=== PATIENT | female | born 1995 | race Caucasian/White ===

== ENCOUNTER 2017-05-11 13:02 | Emergency (ER) | payer MEDICAID ==
--- NOTE | 2017-05-11 13:15 | Emergency Department Record ---
History of Present Illness - General Chief complaint: Extremity Problem Stated complaint: LEFT SHOULDER PAIN Time Seen by Provider: 05/11/17 13:10 Source: Patient Mode of Arrival: Ambulatory Limitations: No limitations - History of Present Illness Initial comments: 21 yo presents with left scapular area pain with movement. This started gradually over the last 2 weeks. No rash. No swelling. She denies any injury. She only has pain with certain movements. No his or shoulder shoulder. The pain occurs with raising her arm up. MD Complaint: Other (shoulder/scapular pain) -: Week(s) (2) Location: Left -: No Arthralgia, Yes Myalgia Radiation: Proximal Quality: Aching Consistency: Constant Improves with: Immobilization Worsens with: Palpation, Weight bearing Associated Symptoms: Denies other symptoms - Related Data Previous Rx's Medication Instructions Recorded Cyclobenzaprine HCl [Flexeril] 10 mg PO TID #20 tablet 05/11/17 Naproxen [Naprosyn] 500 mg PO BID #20 tablet 05/11/17 Allergies Allergy/AdvReac Type Severity Reaction Status Date / Time No Known Drug Allergies Allergy Verified 02/23/16 17:20 Review of Systems Constitutional: Denies: Chills, Fever, Malaise, Weakness Eyes: Denies: Eye discharge ENT: Denies: Congestion Respiratory: Denies: Cough Cardiovascular: Denies: Chest pain, Syncope Endocrine: Denies: Fatigue Gastrointestinal: Denies: Abdominal pain, Diarrhea, Nausea, Vomiting Genitourinary: Denies: Dysuria, Urgency Musculoskeletal: Reports: Myalgia. Denies: Arthralgia, Back pain Skin: Denies: Bruising, Change in color Neurological: Denies: Numbness, Weakness Psychiatric: Denies: Anxiety Hematological/Lymphatic: Denies: Easy bleeding, Easy bruising, Swollen glands Past Medical History - SOCIAL HISTORY Smoking Status: Never smoker Drug Use: None - RESPIRATORY Hx Respiratory Disorders: No - CARDIOVASCULAR Hx Cardio Disorders: No - NEURO Hx Neuro Disorders: No - GI Hx GI Disorders: No - Hx Genitourinary Disorders: No - ENDOCRINE Hx Endocrine Disorders: No - MUSCULOSKELETAL Hx Musculoskeletal Disorders: No - PSYCH Hx Psych Problems: No - HEMATOLOGY/ONCOLOGY Hx Hematology/Oncology Disorders: No Family Medical History Hx Cancer: Grandparents Hx Diabetes: Father, Brother/Sister Hx Heart Disease: Grandparents Hx Liver Disease: Mother Physical Exam - General General Appearance: Alert, Oriented x3, Cooperative, No acute distress - Head Head exam: Atraumatic, Normal inspection - Eye Eye exam: Normal appearance. negative: Conjunctival injection - ENT ENT exam: Normal exam Ear exam: Normal external inspection Nasal Exam: Normal inspection Mouth exam: Normal external inspection - Neck Neck exam: Normal inspection - Respiratory Respiratory exam: Normal lung sounds bilaterally. negative: Respiratory distress - Cardiovascular Cardiovascular Exam: Regular rate, Normal rhythm, Normal heart sounds Peripheral Pulses: 2+: Radial (L) - Rectal Rectal exam: Deferred - exam: Deferred - Extremities Extremities exam: Normal inspection, Full ROM, Normal capillary refill, Tenderness. negative: Joint swelling Image of Full Body: 1 - reproducible tenderness in the muscles, no pain with shoulder internal or external rotation but pain with reaching pain is in the scapular muscle area - Back Back exam: Reports: Normal inspection, Muscle spasm, Tenderness - Neurological Neurological exam: Alert, Normal gait, Oriented X3 - Psychiatric Psychiatric exam: Normal affect, Normal mood - Skin Skin exam: Dry, Intact, Normal color, Warm Disposition Disposition: Discharge Clinical Impression: Muscle strain of scapular region Qualifiers: Encounter type: initial encounter Laterality: left Qualified Code(s): S46.912A - Strain of unspecified muscle, fascia and tendon at shoulder and upper arm level, left arm, initial encounter Disposition: Home, Self-Care Condition: (1) Good Instructions: Muscle Strain (ED) Additional Instructions: Massage the area and use heat to loosen up the muscles Return if worse, fever, cough or any new symptoms develop Avoid driving with the mediations as they can cause drowsiness Prescriptions: Cyclobenzaprine HCl [Flexeril] 10 mg PO TID #20 tablet Naproxen [Naprosyn] 500 mg PO BID #20 tablet Forms: Patient Portal Access Time of Disposition: 13:18 Quality - Quality Measures Quality Measures: N/A - Blood Pressure Screening Does Patient Have Any of the Following: No Systolic Measurement: ~ Screening for High Blood Pressure: < Normal BP, F/U Not Required > [G8783]
== END 2017-05-11 13:27 | disposition home or self-care (01) ==
LOC: ER 13:02
DX: S46.912A Strain of unspecified muscle, fascia and tendon at shoulder and upper arm level, left arm, initial encounter (principal); X58.XXXA Exposure to other specified factors, initial encounter
CPT/HCPCS: 99282

== ENCOUNTER 2017-09-16 04:43 | Emergency (ER) | payer SELFPAY ==
[2017-09-16] MEDS ORDERED: ONDANSETRON HCL IV 4 MG/2 ML VIAL IVP ONE (04:56)
[2017-09-16] MEDS ORDERED: RANITIDINE HCL 50 MG in 0.9 % SODIUM CHLORIDE 100ML 100 ML IVPB ONE (04:56)
[2017-09-16] MEDS ORDERED: 0.9 % SODIUM CHLORIDE 1,000 ML BAG IV ONE (04:56)
--- NOTE | 2017-09-16 04:57 | Emergency Department Record ---
History of Present Illness - General Chief complaint: Vomiting blood Stated complaint: VOMITED BLOOD Time Seen by Provider: 09/16/17 04:48 Source: Patient Mode of Arrival: Ambulatory Limitations: No limitations - History of Present Illness Initial comments: 22 yo female presents at 11 weeks . She reports she has had morning nausea and vomiting almost daily since finding out she was . This morning she noted some blood mixed in the emesis. She denies recent abdominal pain, dark stools, vaginal bleeding, epigastric pain. She has seen her doctor for this . She had an US at 9 weeks that confirmed single live IUP. No history of ulcers in the past. Radiation: None Consistency: Intermittent Improves with: None Worsens with: Eating Context: Other (11 weeks ) Associated Symptoms: Loss of appetite, Other - Related Data Home Medications Medication Instructions Recorded Confirmed Last Taken Prenat Vit 17/Iron/Folic/Om3,6 1 tab PO DAILY 09/16/17 09/16/17 Unknown [Elite-Ob 400 Capsule] Previous Rx's Medication Instructions Recorded Ondansetron [Zofran Odt] 4 mg PO Q8H #10 tab.rapdis 09/16/17 Ranitidine HCl [Zantac] 150 mg PO DAILY #30 tab 09/16/17 Allergies Allergy/AdvReac Type Severity Reaction Status Date / Time No Known Drug Allergies Allergy Verified 09/16/17 04:47 Review of Systems Constitutional: Denies: Chills, Fever, Malaise, Weakness Eyes: Denies: Eye discharge, Eye pain, Photophobia, Vision change ENT: Denies: Congestion, Throat pain Respiratory: Denies: Cough, Dyspnea, Hemoptysis, Stridor, Wheezes Cardiovascular: Denies: Chest pain, Palpitations, Syncope Endocrine: Denies: Fatigue Gastrointestinal: Reports: Hematemesis, Nausea, Vomiting. Denies: Abdominal pain, Diarrhea, Hematochezia, Melena Genitourinary: Reports: Abnormal menses (). Denies: Dysuria, Urgency Musculoskeletal: Denies: Arthralgia, Back pain Skin: Denies: Bruising, Change in color, Rash Neurological: Denies: Headache, Numbness, Weakness Psychiatric: Denies: Anxiety Hematological/Lymphatic: Denies: Blood Clots, Easy bleeding, Easy bruising, Swollen glands Past Medical History - SOCIAL HISTORY Smoking Status: Light tobacco smoker (<10/day) - RESPIRATORY Hx Respiratory Disorders: No - CARDIOVASCULAR Hx Cardio Disorders: No - NEURO Hx Neuro Disorders: No - GI Hx GI Disorders: No - Hx Genitourinary Disorders: No - ENDOCRINE Hx Endocrine Disorders: No - MUSCULOSKELETAL Hx Musculoskeletal Disorders: No - PSYCH Hx Psych Problems: No - HEMATOLOGY/ONCOLOGY Hx Hematology/Oncology Disorders: No Family Medical History Hx Cancer: Grandparents Hx Diabetes: Father, Brother/Sister Hx Heart Disease: Grandparents Hx Liver Disease: Mother Physical Exam - General General Appearance: Alert, Oriented x3, Cooperative, No acute distress Limitations: No limitations - Head Head exam: Atraumatic, Normal inspection - Eye Eye exam: Normal appearance, PERRL. negative: Conjunctival injection, Scleral icterus - ENT ENT exam: Normal exam, Mucous membranes moist Ear exam: Normal external inspection Nasal Exam: Normal inspection Mouth exam: Normal external inspection - Neck Neck exam: Normal inspection, Full ROM. negative: Tenderness - Respiratory Respiratory exam: Normal lung sounds bilaterally. negative: Respiratory distress - Cardiovascular Cardiovascular Exam: Regular rate, Normal rhythm, Normal heart sounds - GI/Abdominal GI/Abdominal exam: Soft, Other (Very soft, non tender abdomen to palpation). negative: Distended, Guarding, Rebound, Rigid, Tenderness - Rectal Rectal exam: Deferred - exam: Deferred - Extremities Extremities exam: Normal inspection - Back Back exam: Denies: CVA tenderness (R), CVA tenderness (L) - Neurological Neurological exam: Alert, Normal gait, Oriented X3 - Psychiatric Psychiatric exam: Normal affect, Normal mood - Skin Skin exam: Dry, Intact, Normal color, Warm. negative: Cyanosis, Diaphoretic, Mottled Course - Reevaluation(s) Reevaluation #1: 09/16/17 05:41 The labs were reviewed There are no acute changes on the CBC or BMP The patient's nausea is well controlled. No additional vomiting. She will be DC on Zantac. She is to call her doctor Sunday to discuss follow up and duration of use of the Zantac 09/16/17 05:46 Medical Decision Making - Lab Data Result diagrams: 09/16/17 05:00 09/16/17 05:00 Disposition Disposition: Discharge Clinical Impression: Hyperemesis gravidarum Gastritis Qualifiers: Gastritis type: unspecified gastritis Chronicity: acute Gastritis bleeding: without bleeding Qualified Code(s): K29.00 - Acute gastritis without bleeding Disposition: Home, Self-Care Condition: (1) Good Instructions: Hyperemesis Gravidarum (ED), Gastritis (ED) Additional Instructions: Return or be seen if you have continued vomiting with blood Be seen immediately if you have pain, fever, uncontrolled vomiting or blood Call your doctor on Sunday for close follow up to discuss this ER visit and discuss the duration of use of the medications You may try Unisom that can be bought over the counter for nausea. If this is not working you may take the Zofran. Discuss this with your doctor as well. Prescriptions: Ondansetron [Zofran Odt] 4 mg PO Q8H #10 tab.rapdis Ranitidine HCl [Zantac] 150 mg PO DAILY #30 tab Forms: Patient Portal Access Time of Disposition: 05:48 Quality - Quality Measures Quality Measures: N/A - Blood Pressure Screening Does Patient Have Any of the Following: No Blood Pressure Classification: Normal BP Reading Systolic Measurement: 117 Diastolic Measurement: 76 Screening for High Blood Pressure: < Normal BP, F/U Not Required > [G8783]
[2017-09-16 05:10] LABS: BASO % 0.2 % (0-6); EOS % 1.7 % (0-6); GRAN % 59.2 % (47-80); HEMATOCRIT 38.9 % (35.0-47.0); HEMOGLOBIN 13.3 gm/dl (11.6-16.0); LYMPH % 31.7 % (16-45); MEAN CELL VOLUME 89.2 fl (81-97); MEAN CORPUSCULAR HEMOGLOBIN 30.5 pg (27-33); MEAN CORPUSCULAR HGB CONC 34.2 g/dl (32-36); MONO % 7.2 % (0-9); PLATELET COUNT 248 K/uL (130-400); RED BLOOD COUNT 4.36 M/uL (3.80-5.40); RED CELL DISTRIBUTION WIDTH 13.8 % (11.5-14.5); WHITE BLOOD COUNT W/O DIFF 9.4 K/uL (4.2-12.2)
[2017-09-16 05:18] LABS: BLOOD UREA NITROGEN 9 mg/dL (6-20); CREATININE 0.5 mg/dL (0.5-0.9); EST GLOMERULAR FILTRATION RATE > 60 mL/min
[2017-09-16 05:21] LABS: GLUCOSE,RANDOM 92 mg/dL (74-109)
[2017-09-16] MEDS ORDERED: AL HYDROX/MAG HYDROX 30ML UD PO ONE (05:46)
== END 2017-09-16 06:11 | disposition home or self-care (01) ==
LOC: ER 04:43
DX: O21.0 Mild hyperemesis gravidarum (principal); O99.611 Diseases of the digestive system complicating pregnancy, first trimester; O99.331 Smoking (tobacco) complicating pregnancy, first trimester; K29.00 Acute gastritis without bleeding; F17.210 Nicotine dependence, cigarettes, uncomplicated; Z3A.11 11 weeks gestation of pregnancy
CPT/HCPCS: 99284 ×2; 96374; 96375; 85025; 80048; J2405; J2780; J7030

== ENCOUNTER 2017-11-07 18:23 | Emergency (ER) | payer SELFPAY ==
--- NOTE | 2017-11-07 18:59 | Emergency Department Record ---
History of Present Illness - General Mode of Arrival: Ambulatory Travel/Exposure to [facility] Within 21 Days of Symptoms: No - History of Present Illness Onset/Timin -: Days(s) Improves with: None Worsens with: Eating Number of weeks : 19 Pre-izzy care: Followed by OB - Related Data : 2 Para: 1 <ChloéDada Silvestre - Last Filed: 11/07/17 18:57> - General Source: Patient Mode of Arrival: Ambulatory Limitations: No limitations - History of Present Illness Initial comments: pt has been vomiting for 2 days and feels dehydrated. she is having no pain and no bleeding. -: Days(s) Worsens with: Eating No complications No complications Pre-izzy care: Followed by OB <Cindy Coreas - Last Filed: 11/07/17 21:24> - General Chief complaint: complication Stated complaint: VOMITING 2X DAYS,HEADACHE Time Seen by Provider: 11/07/17 18:56 - Related Data Home Medications Medication Instructions Recorded Confirmed Last Taken Famotidine [Pepcid] 20 mg PO DAILY 11/07/17 11/07/17 11/07/17 Previous Rx's Medication Instructions Recorded Cephalexin [Keflex] 500 mg PO BID #14 cap 11/07/17 Allergies Allergy/AdvReac Type Severity Reaction Status Date / Time No Known Drug Allergies Allergy Verified 11/07/17 18:44 Review of Systems Reviewed: No additional complaints except as noted below Constitutional: Reports: As per HPI. Denies: Chills, Fever, Malaise, Night sweats, Weakness, Weight change Eyes: Reports: As per HPI. Denies: Eye discharge, Eye pain, Photophobia, Vision change ENT: Reports: As per HPI. Denies: Congestion, Dental pain, Ear pain, Epistaxis , Hearing loss, Throat pain Respiratory: Reports: As per HPI. Denies: Cough, Dyspnea, Hemoptysis, Stridor, Wheezes Cardiovascular: Reports: As per HPI. Denies: Arrhythmia, Chest pain, Dyspnea on exertion, Edema, Murmurs, Orthopnea, Palpitations, Paroxysmal nocturnal dyspnea, Rheumatic Fever, Syncope Endocrine: Reports: As per HPI. Denies: Fatigue, Heat or cold intolerance, Polydipsia, Polyuria Gastrointestinal: Reports: As per HPI. Denies: Abdominal pain, Constipation, Diarrhea, Hematemesis, Hematochezia, Melena, Nausea, Vomiting Genitourinary: Reports: As per HPI. Denies: Abnormal menses, Discharge, Dyspareunia, Dysuria, Frequency, Hematuria, Incontinence, Retention, Urgency Musculoskeletal: Reports: As per HPI. Denies: Arthralgia, Back pain, Gout, Joint swelling, Myalgia, Neck pain Skin: Reports: As per HPI. Denies: Bruising, Change in color, Change in hair/ nails, Lesions, Pruritus, Rash Neurological: Reports: As per HPI. Denies: Abnormal gait, Confusion, Headache, Numbness, Paresthesias, Seizure, Tingling, Tremors, Vertigo, Weakness Psychiatric: Reports: As per HPI. Denies: Anxiety, Auditory hallucinations, Depression, Homicidal thoughts, Suicidal thoughts, Visual hallucinations Hematological/Lymphatic: Reports: As per HPI. 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 History : 2 Para: 1 - RESPIRATORY Hx Respiratory Disorders: No - CARDIOVASCULAR Hx Cardio Disorders: No - NEURO Hx Neuro Disorders: No - GI Hx GI Disorders: No - Hx Genitourinary Disorders: No - ENDOCRINE Hx Endocrine Disorders: No - MUSCULOSKELETAL Hx Musculoskeletal Disorders: No - PSYCH Hx Psych Problems: No - HEMATOLOGY/ONCOLOGY Hx Hematology/Oncology Disorders: No <Dada Luevano - Last Filed: 11/07/17 18:57> Family Medical History Any Significant Family History?: Yes Hx Cancer: Grandparents Hx Diabetes: Father, Brother/Sister Hx Heart Disease: Grandparents Hx Liver Disease: Mother <Dada Luevano - Last Filed: 11/07/17 18:57> Physical Exam - General General Appearance: Alert, Oriented x3, Cooperative, No acute distress - Head Head exam: Normal inspection - Eye Eye exam: Normal appearance, PERRL, EOMI Pupils: Normal accommodation - ENT ENT exam: Normal exam, Mucous membranes dry, Normal external ear exam, Normal orophraynx Ear exam: Normal external inspection. negative: External canal tenderness Nasal Exam: Normal inspection. negative: Discharge, Sinus tenderness Mouth exam: Normal external inspection, Tongue normal Teeth exam: Normal inspection. negative: Dental caries Throat exam: Normal inspection. negative: Tonsillar erythema, Tonsillar exudate - Neck Neck exam: Normal inspection, Full ROM. negative: Tenderness - Respiratory Respiratory exam: Normal lung sounds bilaterally. negative: Respiratory distress - Cardiovascular Cardiovascular Exam: Regular rate, Normal rhythm, Normal heart sounds - GI/Abdominal GI/Abdominal exam: Soft, Normal bowel sounds. negative: Tenderness - Rectal Rectal exam: Deferred - exam: Deferred - Extremities Extremities exam: Normal inspection, Full ROM, Normal capillary refill. negative: Tenderness - Back Back exam: Reports: Normal inspection, Full ROM. Denies: Muscle spasm, Rash noted, Tenderness - Neurological Neurological exam: Alert, CN II-XII intact, Normal gait, Oriented X3 - Psychiatric Psychiatric exam: Normal affect, Normal mood - Skin Skin exam: Dry, Intact, Normal color, Warm <Cindy Coreas - Last Filed: 11/07/17 21:24> Course Vital Signs 11/07/17 18:47 Temperature 98.6 F Pulse Rate 91 H Respiratory 18 Rate Blood Pressure 116/64 Pulse Ox 98 <Dada Luevano - Last Filed: 11/07/17 18:57> Vital Signs 11/07/17 18:47 Temperature 98.6 F Pulse Rate 91 H Respiratory 18 Rate Blood Pressure 116/64 Pulse Ox 98 <Cindy Coreas - Last Filed: 11/07/17 21:24> Medical Decision Making - Lab Data Result diagrams: 11/07/17 18:50 11/07/17 18:50 Lab Results 11/07/17 11/07/17 11/07/17 Range/Units 18:50 18:50 20:26 WBC 10.2 (4.2-12.2) K/uL RBC 4.15 (3.80-5.40) M/uL Hgb 12.8 (11.6-16.0) gm/dl Hct 38.1 (35.0-47.0) % MCV 91.8 (81-97) fl MCH 30.8 (27-33) pg MCHC 33.6 (32-36) g/dl RDW 14.3 (11.5-14.5) % Plt Count 268 (130-400) K/uL MPV 10.5 H (7.4-10.4) fl Gran % 68.1 (47-80) % Lymphocytes % 22.0 (16-45) % Monocytes % 7.9 (0-9) % Eosinophils % 1.8 (0-6) % Basophils % 0.2 (0-6) % Sodium 138 (136-145) mmol/L Potassium 3.6 (3.4-4.5) mmol/L Chloride 102 (98-107) mmol/L Carbon Dioxide 22.0 (22-29) mmol/L Anion Gap 14.0 (7-16) BUN 8 (6-20) mg/dL Creatinine 0.4 L (0.5-0.9) mg/dL Estimated GFR > 60 mL/min Random Glucose 74 (74-109) mg/dL Calcium 9.7 (8.6-10.0) mg/dL Urine Color Yellow Urine Appearance Sl cloudy Urine pH 6.0 (5.0-8.0) Ur Specific [place] 1.025 (1.002-1.030) Urine Protein Negative (NEGATIVE) Urine Glucose (UA) Negative (NEGATIVE) Urine Ketones Trace H (NEGATIVE) Urine Blood Negative (NEGATIVE) Urine Nitrite Negative (NEGATIVE) Urine Bilirubin Negative (NEGATIVE) Urine Urobilinogen 0.2 (0.20 - 1.00) E.U./dL Ur Leukocyte Esterase Large H (NEGATIVE) Urine RBC 0 - 2 (NONE SEEN) Urine WBC 6 - 10 (0-2/hpf) Ur Epithelial Cells Tntc (FEW) Urine Bacteria Few <Cindy Coreas - Last Filed: 11/07/17 21:24> Disposition <Dada Luevano - Last Filed: 11/07/17 18:57> Disposition: Discharge <Cindy Coreas - Last Filed: 11/07/17 21:24> Clinical Impression: Vomiting Qualifiers: Vomiting type: unspecified Vomiting Intractability: intractable Nausea presence : with nausea Qualified Code(s): R11.2 - Nausea with vomiting, unspecified UTI (urinary tract infection) Qualifiers: Urinary tract infection type: acute cystitis Hematuria presence: without hematuria Qualified Code(s): N30.00 - Acute cystitis without hematuria Disposition: Home, Self-Care Condition: (1) Good Instructions: Nausea and Vomiting in (ED), Urinary Tract Infection in (ED) Additional Instructions: follow up with family doctor. return sooner if worse. push fluids Prescriptions: Cephalexin [Keflex] 500 mg PO BID #14 cap Forms: Patient Portal Access Quality - Blood Pressure Screening Does Patient Have Any of the Following: No Blood Pressure Classification: Normal BP Reading Systolic Measurement: 116 Diastolic Measurement: 64 Screening for High Blood Pressure: < Normal BP, F/U Not Required > [G8783] <Dada Luevano - Last Filed: 11/07/17 18:57> - Quality Measures Quality Measures: N/A - Blood Pressure Screening Does Patient Have Any of the Following: No Blood Pressure Classification: Normal BP Reading Systolic Measurement: 116 Diastolic Measurement: 64 Screening for High Blood Pressure: < Normal BP, F/U Not Required > [G8783] <Cindy Coreas - Last Filed: 11/07/17 21:24>
[2017-11-07] MEDS: 0.9 % SODIUM CHLORIDE 1,000 ML BAG IV ONE (19:00)
[2017-11-07] MEDS: ONDANSETRON HCL IV 4 MG/2 ML VIAL IVP ONE (19:35)
[2017-11-07 19:41] LABS: HEMOGLOBIN 12.8 gm/dl (11.6-16.0); RED BLOOD COUNT 4.15 M/uL (3.80-5.40); WHITE BLOOD COUNT W/O DIFF 10.2 K/uL (4.2-12.2)
[2017-11-07 19:42] LABS: BASO % 0.2 % (0-6); EOS % 1.8 % (0-6); GRAN % 68.1 % (47-80); HEMATOCRIT 38.1 % (35.0-47.0); MEAN CELL VOLUME 91.8 fl (81-97); MEAN CORPUSCULAR HEMOGLOBIN 30.8 pg (27-33); MEAN CORPUSCULAR HGB CONC 33.6 g/dl (32-36); MEAN PLATELET VOLUME 10.5 fl (7.4-10.4); MONO % 7.9 % (0-9); PLATELET COUNT 268 K/uL (130-400); RED CELL DISTRIBUTION WIDTH 14.3 % (11.5-14.5)
[2017-11-07 19:51] LABS: BLOOD UREA NITROGEN 8 mg/dL (6-20); CREATININE 0.4 mg/dL (0.5-0.9); EST GLOMERULAR FILTRATION RATE > 60 mL/min
[2017-11-07 19:54] LABS: GLUCOSE,RANDOM 74 mg/dL (74-109)
[2017-11-07 20:19] LABS: URINE APPEARANCE SL CLOUDY; URINE BILIRUBIN NEGATIVE (NEGATIVE); URINE BLOOD NEGATIVE (NEGATIVE); URINE COLOR YELLOW; URINE GLUCOSE (UA) NEGATIVE (NEGATIVE); URINE KETONE TRACE (NEGATIVE); URINE LEUKOCYTE ESTERASE LARGE (NEGATIVE); URINE NITRITE NEGATIVE (NEGATIVE); URINE PROTEIN NEGATIVE (NEGATIVE); URINE UROBILINOGEN 0.2 E.U./dL (0.20 - 1.00)
[2017-11-07 20:27] LABS: URINE BACTERIA FEW; URINE RBC 0 - 2 (NONE SEEN)
[2017-11-07] MEDS: CEPHALEXIN 500 MG CAPSULE PO STA (21:27)
== END 2017-11-07 21:34 | disposition home or self-care (01) ==
LOC: ER 18:23
DX: O23.12 Infections of bladder in pregnancy, second trimester (principal); N30.00 Acute cystitis without hematuria; R11.2 Nausea with vomiting, unspecified; Z3A.19 19 weeks gestation of pregnancy; Z87.891 Personal history of nicotine dependence
CPT/HCPCS: 80048; 81001; 85025; 96361; 96374; 99284; J2405; J7030

== ENCOUNTER 2018-05-20 07:36 | Emergency (ER) | payer MEDICAID ==
--- NOTE | 2018-05-20 07:59 | Emergency Department Record ---
History of Present Illness - General Chief complaint: ENT Stated complaint: SORE THROAT Time Seen by Provider: 05/20/18 07:46 Source: Patient Mode of Arrival: Ambulatory Limitations: No limitations - History of Present Illness Initial comments: The patient is here for a ST for one day. It has been mildly irritated for a week but the pain started in the last 24 hours. She denies any fever, cough, runny nose or [place]. MD complaint: Sore throat Onset/Timin -: Days(s) Location: Throat Severity: Mild Severity scale (1-10): 3 Quality: Aching Consistency: Constant Improves with: None Worsens with: None - Related Data Home Medications Medication Instructions Recorded Confirmed Last Taken No Home Med [NO HOME MEDS] 05/20/18 05/20/18 Unknown Allergies Allergy/AdvReac Type Severity Reaction Status Date / Time No Known Drug Allergies Allergy Verified 05/20/18 07:45 Travel Screening - Travel/Exposure Within Last 30 Days Have you traveled within the last 30 days?: No Review of Systems Constitutional: Denies: Chills, Fever Eyes: Denies: Eye discharge ENT: Denies: Congestion Respiratory: Denies: Cough, Dyspnea Past Medical History - SOCIAL HISTORY Smoking Status: Light tobacco smoker (<10/day) Alcohol Use: None Drug Use: None - RESPIRATORY Hx Respiratory Disorders: No - CARDIOVASCULAR Hx Cardio Disorders: No - NEURO Hx Neuro Disorders: No - GI Hx GI Disorders: No - Hx Genitourinary Disorders: No - ENDOCRINE Hx Endocrine Disorders: No - MUSCULOSKELETAL Hx Musculoskeletal Disorders: No - PSYCH Hx Psych Problems: No - HEMATOLOGY/ONCOLOGY Hx Hematology/Oncology Disorders: No Family Medical History Any Significant Family History?: Yes Hx Cancer: Grandparents Hx Diabetes: Father, Brother/Sister Hx Heart Disease: Grandparents Hx Liver Disease: Mother Physical Exam - General General Appearance: Alert, Oriented x3, Cooperative, No acute distress - Head Head exam: Atraumatic, Normocephalic, Normal inspection - Eye Eye exam: Normal appearance, PERRL, EOMI - ENT Throat exam: Tonsillar erythema. negative: Normal inspection, Tonsillomegaly, Tonsillar exudate, R peritonsillar mass, L peritonsillar mass - Neck Neck exam: Normal inspection, Full ROM. negative: Lymphadenopathy, Tenderness - Respiratory Respiratory exam: Normal lung sounds bilaterally. negative: Respiratory distress Course Vital Signs 05/20/18 07:41 Temperature 97.4 F L Pulse Rate 57 L Respiratory 18 Rate Blood Pressure 115/70 Pulse Ox 97 - Reevaluation(s) Reevaluation #1: I did explain the neg strep to the patient and the need for F/U with her PCP if not better. 05/20/18 08:03 Medical Decision Making - Data Complexity MDM Data: Labs Ordered and/or Reviewed (Rapid Strep: Neg.) Disposition Disposition: Discharge Clinical Impression: Pharyngitis Qualifiers: Pharyngitis/tonsillitis etiology: unspecified etiology Qualified Code(s): J02.9 - Acute pharyngitis, unspecified Disposition: Home, Self-Care Condition: (2) Stable Instructions: Pharyngitis (ED) Additional Instructions: Please use Tylenol or Motrin for pain and please see your family doctor if not better in 3 days. Forms: Patient Portal Access Time of Disposition: 08:04 Quality - Quality Measures Quality Measures: N/A - Blood Pressure Screening View Details: Yes Does Patient Have Any of the Following: No Blood Pressure Classification: Normal BP Reading Systolic Measurement: 115 Diastolic Measurement: 70 Screening for High Blood Pressure: < Normal BP, F/U Not Required > [G8783]
== END 2018-05-20 08:13 | disposition home or self-care (01) ==
LOC: ER 07:36
DX: J02.9 Acute pharyngitis, unspecified (principal); F17.210 Nicotine dependence, cigarettes, uncomplicated
CPT/HCPCS: 87880; 99282

== ENCOUNTER 2018-08-15 19:02 | Emergency (ER) | payer SELFPAY ==
[2018-08-15] MEDS ORDERED: KETOROLAC 30 MG/ML VIAL IVP ONE (19:59)
[2018-08-15] MEDS ORDERED: KETOROLAC 30 MG/ML VIAL IM ONE (20:02)
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
== END 2018-08-15 21:37 | disposition home or self-care (01) ==
LOC: ER 19:02
DX: S46.812A Strain of other muscles, fascia and tendons at shoulder and upper arm level, left arm, initial encounter (principal); S70.01XA Contusion of right hip, initial encounter; S80.12XA Contusion of left lower leg, initial encounter; V43.52XA Car driver injured in collision with other type car in traffic accident, initial encounter; F17.210 Nicotine dependence, cigarettes, uncomplicated
CPT/HCPCS: 99283; 96372; 99284; 73010; 73502; J1885

== ENCOUNTER 2019-04-01 16:58 | Emergency (ER) | payer BC, MEDICAID ==
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
[2019-04-01] MEDS ORDERED: 0.9 % SODIUM CHLORIDE 1000ML 1,000 ML IV SCH (18:30)
[2019-04-01 18:50] LABS: ABSOLUTE NEUTROPHIL COUNT 6.18; BASO % 0.2 % (0-6); EOS % 1.1 % (0-6); GRAN % 58.9 % (47-80); HEMATOCRIT 39.1 % (35.0-47.0); HEMOGLOBIN 12.7 gm/dl (11.6-16.0); LYMPH % 32.8 % (16-45); MEAN CELL VOLUME 90.1 fl (81-97); MEAN CORPUSCULAR HEMOGLOBIN 29.3 pg (27-33); MEAN CORPUSCULAR HGB CONC 32.5 g/dl (32-36); MEAN PLATELET VOLUME 10.3 fl (7.4-10.4); PLATELET COUNT 281 K/uL (130-400); RED BLOOD COUNT 4.34 M/uL (3.80-5.40); RED CELL DISTRIBUTION WIDTH 14.5 % (11.5-14.5); WHITE BLOOD COUNT W/O DIFF 10.5 K/uL (4.2-12.2)
[2019-04-01 19:15] LABS: BLOOD UREA NITROGEN 8 mg/dL (6-20)
[2019-04-01 19:16] LABS: CREATININE 0.6 mg/dL (0.5-0.9); EST GLOMERULAR FILTRATION RATE > 60 mL/min; TOTAL PROTEIN 7.1 g/dL (6.6-8.7)
[2019-04-01 19:18] LABS: GLUCOSE,RANDOM 86 mg/dL (74-109)
[2019-04-01 19:20] LABS: ALB/GLOB RATIO 1.4 (1.1-1.8); ALBUMIN 4.2 g/dL (4.0-5.0); ALT/SGPT 10 U/L (<33); AST/SGOT 14 U/L (10.0-35.0)
[2019-04-01 19:21] LABS: ALKALINE PHOSPHATASE 58 U/L (35-104)
[2019-04-01 19:28] LABS: TOTAL B-hCG 5832 mIU/mL
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
== END 2019-04-01 20:28 | disposition home or self-care (01) ==
LOC: ER 16:58
DX: O99.89 Other specified diseases and conditions complicating pregnancy, childbirth and the puerperium (principal); R00.1 Bradycardia, unspecified; R55 Syncope and collapse; O99.331 Smoking (tobacco) complicating pregnancy, first trimester; F17.210 Nicotine dependence, cigarettes, uncomplicated; Z3A.01 Less than 8 weeks gestation of pregnancy
CPT/HCPCS: 76801; 76817; 80053; 82375; 84702; 85025; 93005; 93010; 99284

== ENCOUNTER 2019-10-26 18:11 | Emergency (ER) | payer MEDICAID ==
[2019-10-26] MEDS ORDERED: ACETAMINOPHEN 1,000 MG/100 ML BTL IVPB ONE (18:24)
[2019-10-26] MEDS ORDERED: 0.9 % SODIUM CHLORIDE 1,000 ML BAG IV ONE (18:24)
[2019-10-26] MEDS ORDERED: METOCLOPRAMIDE HCL 10 MG/2 ML VIAL IVP ONE (18:24)
--- NOTE | 2019-10-26 18:30 | Emergency Department Record ---
History of Present Illness - General Chief Complaint: Headache Migraine Stated Complaint: HEADACHE Time Seen by Provider: 10/26/19 18:23 Source: Patient, Family Mode of Arrival: Ambulatory Limitations: No limitations - History of Present Illness Initial Comments: 24 yo female presents with a headache. She states she is about 37 weeks gestation. The headache started yesterday morning when she woke up. The headache is frontal mostly and in the facial area. The headache has been continuous since onset. She has been to OB Triage twice at [facility] (once yesterday and once today) and was discharged home in good condition. No vision changes. No vomiting. She informs me this is her third . She states she is unaware of any complications with this . She has had normal to low blood pressures. No vision changes. The patient states she has migraines with her last was about three months ago. This is similar to prior migraines but not going away. No weakness, confusion, vision or hearing changes. The patient was placed on magnesium and Fioricet without improvement. Her last dose was at 4pm. She is feeling the baby move a lot. She is not having any bleeding or fluid leakage. Dr Remy is her physician at [facility]. Complaint: "Migraine" -: Days(s) (1) Onset Description: Awoke with symptoms Location: Facial, Frontal Severity: Severe Quality: Aching, Sharp Consistency: Constant Improves With: Nothing Worsens With: None Context: Other (34 weeks ) Associated Symptoms: Photophobia Treatments Prior to Arrival: None - Related Data Home Medications Medication Instructions Recorded Confirmed Last Taken Butalb/Acetaminophen/Caffeine 1 each PO Q4H 10/26/19 10/26/19 10/26/19 [Fioricet] Magnesium Oxide [Mag Ox] 400 mg PO DAILY 10/26/19 10/26/19 10/26/19 Allergies Allergy/AdvReac Type Severity Reaction Status Date / Time No Known Drug Allergies Allergy Verified 10/26/19 18:22 Review of Systems Constitutional: Denies: Chills, Fever, Malaise, Weakness Eyes: Reports: Photophobia. Denies: Eye discharge, Eye pain, Vision change ENT: Denies: Congestion, Ear pain, Throat pain Respiratory: Denies: Cough, Dyspnea, Hemoptysis, Stridor, Wheezes Cardiovascular: Denies: Chest pain, Dyspnea on exertion, Edema Endocrine: Denies: Fatigue, Polydipsia, Polyuria Gastrointestinal: Denies: Abdominal pain, Diarrhea, Nausea, Vomiting Genitourinary: Denies: Dysuria, Frequency, Hematuria, Urgency Musculoskeletal: Denies: Arthralgia, Back pain, Myalgia Skin: Denies: Bruising, Change in color, Rash Neurological: Reports: Headache. Denies: Abnormal gait, Confusion, Numbness, Paresthesias, Tingling, Vertigo, Weakness Psychiatric: Denies: Anxiety Hematological/Lymphatic: Denies: Easy bleeding, Easy bruising Past Medical History - SOCIAL HISTORY Smoking Status: Light tobacco smoker (<10/day) - RESPIRATORY Hx Respiratory Disorders: No - CARDIOVASCULAR Hx Cardio Disorders: No - NEURO Hx Neuro Disorders: No - GI Hx GI Disorders: No - Hx Genitourinary Disorders: No - ENDOCRINE Hx Endocrine Disorders: No - MUSCULOSKELETAL Hx Musculoskeletal Disorders: No - PSYCH Hx Psych Problems: No - HEMATOLOGY/ONCOLOGY Hx Hematology/Oncology Disorders: No Family Medical History Hx Cancer: Grandparents Hx Diabetes: Father, Brother/Sister Hx Heart Disease: Grandparents Hx Liver Disease: Mother Physical Exam - General General Appearance: Alert, Oriented x3, Cooperative, No acute distress Limitations: No limitations - Head Head exam: Atraumatic, Normocephalic, Normal inspection - Eye Eye exam: Normal appearance, PERRL, EOMI. negative: Conjunctival injection, Nystagmus, Periorbital swelling, Scleral icterus - ENT ENT exam: Normal exam, Mucous membranes moist Ear exam: Normal external inspection Nasal Exam: Normal inspection Mouth exam: Normal external inspection - Neck Neck exam: Normal inspection, Full ROM. negative: Lymphadenopathy, Meningismus, Thyromegaly - Respiratory Respiratory exam: Normal lung sounds bilaterally. negative: Respiratory distress, Rhonchi, Stridor, Wheezes - Cardiovascular Cardiovascular Exam: Regular rate, Normal rhythm, Normal heart sounds - GI/Abdominal GI/Abdominal exam: Soft. negative: Tenderness - Rectal Rectal exam: Deferred - exam: Deferred - Extremities Extremities exam: Normal inspection. negative: Calf tenderness, Pedal edema, Tenderness - Back Back exam: Denies: CVA tenderness (R), CVA tenderness (L) - Neurological Neurological exam: Alert, CN II-XII intact, Normal gait, Oriented X3, Reflexes normal. negative: Abnormal gait, Altered, Motor sensory deficit - Psychiatric Psychiatric exam: Other (crying) - Skin Skin exam: Dry, Intact, Normal color, Warm Course - Reevaluation(s) Reevaluation #1: 10/26/19 18:54 The CBC was reviewed The WBC is 12, the Hgb is 10.4, Plt are 308 10/26/19 18:55 10/26/19 19:09 BP 110/68 The LFTs are normal 10/26/19 19:42 The patient reports her symptoms are greatly improved and she is ready for DC home. I reviewed the labs and blood pressure. No signs of pre-eclampsia. Her neurologic examination normal as tested. The baby was examined with bedside US. The baby was moving very well with a HR of 130's. Very active. Given her headache at this stage in I offered transfer to [facility] OB Triage. The patient declined. She states she has an appointment at 11am in the morning with her doctor. I call the contour band saw operator [facility] for her at [facility]. I spoke with Dr Pritchett. We discussed the prior visits to the OB Triage, tonights presentation, labs, examination, and current clinical condition of greatly improved. The resident physician that saw the patient today also was on the line for the conversation. Given her normal examination, normal BP, normal la bs, she can go home and follow up with them tomorrow as scheduled. I discussed extensively with the patient that if she has any concerns she will need to go immediately, directly to [facility]. 10/26/19 20:17 The UA is negative for protein. There are bacteria but there are also epithilial cells indicating contamination. She was given a copy of the UA to show her doctor at 11am tomorrow. She is asymptomatic without signs of UTI. Medical Decision Making - Lab Data Result diagrams: 10/26/19 18:38 10/26/19 18:38 Disposition Disposition: Discharge Clinical Impression: Migraine Qualifiers: Migraine type: unspecified Status migrainosus presence: without status migrainosus Intractability: not intractable Qualified Code(s): G43.909 - Migraine, unspecified, not intractable, without status migrainosus Disposition: Home, Self-Care Condition: (1) Good Instructions: Migraine Headache (ED) Additional Instructions: Review this ER visit and the tests performed with your family doctor tomorrow at 11am Go directly to [facility] OB Triage or ER for a recheck immediately if worse, any new concerns or questions Take the prescriptions provided as directed from your doctor that were started today Forms: Patient Portal Access Time of Disposition: 19:50 Quality - Quality Measures Quality Measures: N/A, Headache (All Ages) - Headache: Neuroimaging Quality Measure: Measure #419: Overuse of Neuroimaging ICD10 Codes Entered: Yes Neurological Exam: Patient had a normal neurological exam. [G9535] Headache: Use of Neuroimaging: < CTA, CT, MRA or MRI was NOT ordered > [G9534] - Blood Pressure Screening Does Patient Have Any of the Following: No Blood Pressure Classification: Pre-Hypertensive BP Reading Systolic Measurement: 132 Diastolic Measurement: 72 Screening for High Blood Pressure: < Pre-Hypertensive BP, F/U Documented > [G8950] Pre-Hypertensive Follow-up Interventions: Referral to alternative/primary care provider.
[2019-10-26 18:47] LABS: ABSOLUTE NEUTROPHIL COUNT 9.46; BASO % 0.1 % (0-6); EOS % 0.3 % (0-6); GRAN % 76.6 % (47-80); HEMATOCRIT 32.9 % (35.0-47.0); HEMOGLOBIN 10.4 gm/dl (11.6-16.0); MEAN CELL VOLUME 84.8 fl (81-97); MEAN CORPUSCULAR HEMOGLOBIN 26.8 pg (27-33); MEAN CORPUSCULAR HGB CONC 31.6 g/dl (32-36); MEAN PLATELET VOLUME 10.1 fl (7.4-10.4); PLATELET COUNT 308 K/uL (130-400); RED BLOOD COUNT 3.88 M/uL (3.80-5.40); RED CELL DISTRIBUTION WIDTH 13.8 % (11.5-14.5); WHITE BLOOD COUNT W/O DIFF 12.4 K/uL (4.2-12.2)
[2019-10-26 18:58] LABS: INR 0.9; PARTIAL THROMBOPLASTIN TIME 29.4 SECONDS (24.5-39.1); PROTHROMBIN TIME (PATIENT) 9.7 SECONDS (9.5-12.1)
[2019-10-26 18:59] LABS: BLOOD UREA NITROGEN 6 mg/dL (6-20); CREATININE 0.5 mg/dL (0.5-0.9); EST GLOMERULAR FILTRATION RATE > 60 mL/min; TOTAL PROTEIN 6.8 g/dL (6.6-8.7)
[2019-10-26 19:01] LABS: GLUCOSE,RANDOM 118 mg/dL (74-109)
[2019-10-26 19:04] LABS: ALB/GLOB RATIO 0.8 (1.1-1.8); ALKALINE PHOSPHATASE 106 U/L (35-104); ALT/SGPT < 5 U/L (<33); AST/SGOT 11 U/L (10.0-35.0)
[2019-10-26 20:00] LABS: URINE APPEARANCE SL CLOUDY; URINE BILIRUBIN NEGATIVE (NEGATIVE); URINE BLOOD NEGATIVE (NEGATIVE); URINE COLOR YELLOW; URINE GLUCOSE (UA) NEGATIVE (NEGATIVE); URINE KETONE NEGATIVE (NEGATIVE); URINE LEUKOCYTE ESTERASE MODERATE (NEGATIVE); URINE NITRITE NEGATIVE (NEGATIVE); URINE PROTEIN NEGATIVE (NEGATIVE); URINE UROBILINOGEN 0.2 E.U./dL (0.20 - 1.00)
[2019-10-26 20:13] LABS: URINE BACTERIA 2+; URINE RBC NONE SEEN (NONE SEEN)
== END 2019-10-26 20:26 | disposition home or self-care (01) ==
LOC: ER 18:11
DX: O26.893 Other specified pregnancy related conditions, third trimester (principal); G43.909 Migraine, unspecified, not intractable, without status migrainosus; H53.149 Visual discomfort, unspecified; O99.330 Smoking (tobacco) complicating pregnancy, unspecified trimester; F17.210 Nicotine dependence, cigarettes, uncomplicated; Z3A.34 34 weeks gestation of pregnancy
CPT/HCPCS: 80053; 81001; 85025; 85610; 85730; 96365; 96375; 99284; J2765; J7030